=== PATIENT | female | born 1970 | race Caucasian/White ===

== ENCOUNTER 2022-05-20 16:48 | Outpatient (CLI) | payer MEDICARE, OTHER, SELFPAY | END 2022-05-20 16:49 | disposition home or self-care (01) | PROVIDERS: Visit Provider Family Medicine | DX: R10.9 Unspecified abdominal pain (principal); K92.1 Melena | CPT/HCPCS: A0425; A0427 ==

== ENCOUNTER 2024-03-05 02:22 | Outpatient (CLI) | payer MEDICARE, OTHER, SELFPAY | END 2024-03-05 02:23 | disposition home or self-care (01) | LOC: AMB 03-09 06:25 | PROVIDERS: Visit Provider Family Medicine | DX: R06.09 Other forms of dyspnea (principal); R53.81 Other malaise | CPT/HCPCS: A0425; A0429 ==